=== PATIENT | female | born 1985 | race American Indian/Alaskan Native ===

== ENCOUNTER 2021-05-07 10:09 | Day surgery (SDC) | payer MEDICAID ==
[~2021-05-07 10:09] MED LIST: SODIUM CHLORIDE 0.9% 1000 ML 1,000 ML IV SCH
--- NOTE | 2021-05-07 11:04 | Anesthesia Day of Surgery ---
Anesthesia Day of Surgery - Day of Surgery Patient Examined: Yes Patient H&P Reviewed: Yes Patient is NPO: Yes
--- NOTE | 2021-05-07 11:05 | Anesthesia Consultation ---
Anesthesia Consult and Med Hx Date of service: 05/07/21 - Airway Anesthetic Teeth Evaluation: Good ROM Head & Neck: Adequate Mental/Hyoid Distance: Adequate Mallampati Class: Class III Intubation Access Assessment: Probably Good - Pre-Operative Health Status ASA Pre-Surgery Classification: ASA3 Proposed Anesthetic Plan: MAC - Pulmonary Hx Smoking: No Hx Sleep Apnea: Yes - Gastrointestinal Hx Gastroesophageal Reflux Disease: No - Hematic Hx Sickle Cell Disease: Yes (Trait) - Other Systems Hx Obesity: No
[2021-05-07] MEDS ORDERED: LIDOCAINE 2% UROJECT 10 ML JELLY ONE (11:31)
[2021-05-07] MEDS ORDERED: LIDOCAINE 2% UROJECT 10 ML JELLY TP ONE (11:41)
--- NOTE | 2021-05-07 11:55 | Procedure Note ---
Date of procedure: 05/07/21 Pre-op diagnosis: Hematochezia Post-op diagnosis: other (Hematochezia secondary to Moderate Internal Hemorrhoids x 3/ No colon Polyps or Diverticular disease noted) Procedure: Colonoscopy/ Flex Sigmoidoscopy with banding x 3 Anesthesia: MAC Surgeon: SHEREE KRAUSE Estimated blood loss: minimal Pathology: none Condition: stable Disposition: same day (Treat with Tramadol, Sitz Bath; avoid aspirin and NSAID for 5 days, otherwise resume home medication and F/U in 1 to 2 weeks ([phone]).)
--- NOTE | 2021-05-07 12:01 | Operative Report ---
DATE OF SURGERY: 05/07/2021 PROCEDURE: Colonoscopy. INDICATIONS: A 36-year-old -[place] female with a strong family history of cancer. The patient's mother and grandmother have had breast cancer. She recently had been noticing some hematochezia. Colonoscopy was done to assess for the problem. DESCRIPTION OF PROCEDURE: Procedure was done after getting informed consent with MAC anesthesia. Initial rectal examination was unremarkable. The instrument was passed through the rectum onto the cecum, which showed normal mucosa. Visualization was fair to good. Cecum, ascending colon, transverse colon, descending colon, sigmoid showed normal mucosa. There was no evidence of any polyps, colitis or diverticular disease. Rectum showed moderate internal hemorrhoid, which may have been the cause of the patient's hematochezia. ASSESSMENT: Hematochezia secondary to moderate internal hemorrhoids. Family history of cancer, the patient's mother and grandmother had breast cancer. Normal colon mucosa. No colon polyps, diverticular disease or colitis noted. PLAN: To do a flexible sigmoidoscopy with banding. Procedure was done in the GI lab with assistance of the GI lab team, which included the GI nurse, the agricultural service technician and with assistance of Anesthesia. TID: [id number] RECEIPT: [id number] SHERMAN
--- NOTE | 2021-05-07 12:02 | Operative Report ---
DATE OF SURGERY: 05/07/2021 PROCEDURE: Flexible sigmoidoscopy with banding. INDICATIONS: A 36-year-old -[place] female who has had a . She had been having hematochezia. Colonoscopy showed normal colon mucosa. No colon polyps or diverticula was noted. Flexible sigmoidoscopy and banding was done to band the hemorrhoids, which is a possible cause of the patient's hematochezia. DESCRIPTION OF PROCEDURE: Procedure was done after getting informed consent with MAC anesthesia. The EGD scope with the banding apparatus loaded was introduced and was retroflexed. Three of the largest hemorrhoids were then suctioned into the suction channel and banded. A total of four bands were deployed, but one did not stay and ultimately three bands were deployed. ASSESSMENT: Hematochezia secondary to internal hemorrhoids, status post banding x 3. At the end of the procedure, lidocaine gel was inserted into the rectal vault. PLAN: To treat the patient with analgesics, Sitz bath, have the patient avoid aspirin and aspirin-related products and have the patient follow up in the office in 1-2 weeks' time. Procedure was done in the GI lab with GI lab team, which included the GI nurse, the fire alarm technician and with assistance of Anesthesia. TID: [id number] RECEIPT: [id number] SHERMAN
[2021-05-07 12:03] VITALS: BP 121/85
[2021-05-07] MEDS ORDERED: HYDROcodone/ACETAMINOPHEN 5-325 MG TAB PO PRN (12:21)
--- NOTE | 2021-05-07 13:22 | Post Anesthesia Evaluation ---
- Post Anesthesia Evaluation Patient Participated: Yes Airway Patent: Yes Stable Respiratory Function: Yes Nausea/Vomiting: No Temp > 96.8F: Yes Pain Manageable: Yes Adequeate Hydration: Yes Anesthesia Complications: No Block Receding Appropriately: Not Applicable Patient on Ventilator: No
== END 2021-05-07 12:55 | disposition home or self-care (01) ==
LOC: GIO 10:09
DX: K92.2 Gastrointestinal hemorrhage, unspecified (principal); K51.90 Ulcerative colitis, unspecified, without complications; R10.84 Generalized abdominal pain; K64.8 Other hemorrhoids; G47.30 Sleep apnea, unspecified; Z20.822 Contact with and (suspected) exposure to COVID-19; Z79.899 Other long term (current) drug therapy; Z80.3 Family history of malignant neoplasm of breast
CPT/HCPCS: 45378; 46221; J7030; U0003; Q0162